=== PATIENT | male | born 1995 | race Caucasian/White ===

== ENCOUNTER 2021-06-22 19:38 | Emergency (ER) | payer OTHER ==
[~2021-06-22] VITALS: Ht 175.3 cm; Wt 75.0 kg
[2021-06-22 21:25] VITALS: BP 141/84
== END 2021-06-22 21:24 | disposition home or self-care (01) ==
LOC: ED 19:38
DX: R07.9 Chest pain, unspecified (principal); F17.200 Nicotine dependence, unspecified, uncomplicated

== ENCOUNTER 2021-09-21 22:33 | Emergency (ER) | payer OTHER ==
[~2021-09-21] VITALS: Ht 175.3 cm; Wt 84.0 kg
[2021-09-21 22:47] VITALS: BP 138/86
[2021-09-21] MEDS ORDERED: IBUPROFEN600 MG PO (23:37)
== END 2021-09-22 00:10 | disposition home or self-care (01) | DRG 563 ==
LOC: ED 22:33
DX: S83.92XA Sprain of unspecified site of left knee, initial encounter (principal); F17.200 Nicotine dependence, unspecified, uncomplicated; V68.5XXA Driver of heavy transport vehicle injured in noncollision transport accident in traffic accident, initial encounter

== ENCOUNTER 2022-03-03 13:22 | Emergency (ER) | payer OTHER ==
[~2022-03-03] VITALS: Ht 175.3 cm; Wt 79.3 kg
[~2022-03-03 13:22] MED LIST: IBUPROFEN600 MG PO
[2022-03-03 14:28] VITALS: BP 101/70
[2022-03-03 14:30] VITALS: BP 124/72
[2022-03-03 15:00] VITALS: BP 111/65
[2022-03-03 15:30] VITALS: BP 107/63
[2022-03-03 16:00] VITALS: BP 100/56
== END 2022-03-03 16:02 | disposition home or self-care (01) ==
LOC: ED 13:22
DX: U07.1 COVID-19 (principal); R05.9 Cough, unspecified; R50.9 Fever, unspecified; R52 Pain, unspecified; F17.210 Nicotine dependence, cigarettes, uncomplicated

== ENCOUNTER 2023-05-24 13:54 | Emergency (ER) | payer OTHER ==
[~2023-05-24] VITALS: Ht 175.3 cm; Wt 82.0 kg
[2023-05-24] MEDS ORDERED: NAPROXEN500 MG PO (15:10)
[2023-05-24] MEDS ORDERED: METHOCARBAMOL500 MG PO (15:10)
[2023-05-24 15:32] VITALS: BP 109/71
== END 2023-05-24 15:35 | disposition home or self-care (01) ==
LOC: ED 13:54
DX: M54.6 Pain in thoracic spine (principal); F17.200 Nicotine dependence, unspecified, uncomplicated

== ENCOUNTER 2024-05-17 18:26 | Emergency (ER) | payer OTHER ==
[~2024-05-17] VITALS: Ht 175.3 cm; Wt 90.0 kg
[~2024-05-17 18:26] MED LIST changes: +METHOCARBAMOL500 MG PO; +NAPROXEN500 MG PO
[2024-05-17 18:43] VITALS: BP 127/64
[2024-05-17 19:00] VITALS: BP 116/75
[2024-05-17] MEDS ORDERED: DEXAMETHASONE 2 MG/TAB TAB PO ONE (19:25)
[2024-05-17] MEDS ORDERED: ORPHENADRINE CITRATE 30 MG/ML AMP IM ONE (19:25)
[2024-05-17] MEDS ORDERED: HYDROmorphone HCL 2 MG/AMP IM ONE (19:25)
[2024-05-17 19:31] VITALS: BP 103/72
[2024-05-17] MEDS ORDERED: FLEXERIL5 M1 PO (19:31)
[2024-05-17] MEDS ORDERED: DECADRON4 MG PO (19:31)
[2024-05-17] MEDS ORDERED: CELEBREX200 M1 PO (19:31)
[2024-05-17] MEDS ORDERED: CYCLOBENZAPRINE HCL 5 MG TAB PO ONE (19:40)
[2024-05-17 20:11] VITALS: BP 116/75
== END 2024-05-17 20:11 | disposition home or self-care (01) ==
LOC: ED 18:26
DX: S39.012A Strain of muscle, fascia and tendon of lower back, initial encounter (principal); F17.200 Nicotine dependence, unspecified, uncomplicated; X50.0XXA Overexertion from strenuous movement or load, initial encounter; Y93.89 Activity, other specified; Y92.59 Other trade areas as the place of occurrence of the external cause; Y99.0 Civilian activity done for income or pay

== ENCOUNTER 2024-10-13 21:16 | Emergency (ER) | payer OTHER ==
[~2024-10-13] VITALS: Ht 175.3 cm; Wt 89.0 kg
[~2024-10-13 21:16] MED LIST changes: +CELEBREX200 M1 PO; +DECADRON4 MG PO; +FLEXERIL5 M1 PO
[2024-10-13 21:20] VITALS: BP 135/77
[2024-10-13] MEDS ORDERED: ACETAMINOPHEN 500 MG TAB PO ONE (21:25)
[2024-10-13] MEDS ORDERED: AMOXICILLIN TRIHYDRATE 500 MG/CAP PO ONE (21:25)
[2024-10-13] MEDS ORDERED: IBUPROFEN 800 MG/TAB PO ONE (21:25)
[2024-10-13] MEDS ORDERED: MOTRIN800 MG PO (21:27)
[2024-10-13] MEDS ORDERED: AMOXICILLIN500 MG PO (21:27)
[2024-10-13 21:30] VITALS: BP 140/85
[2024-10-13 21:45] VITALS: BP 128/86
[2024-10-13 21:47] VITALS: BP 128/86
== END 2024-10-13 21:47 | disposition home or self-care (01) ==
LOC: ED 21:16
DX: K04.7 Periapical abscess without sinus (principal); K02.9 Dental caries, unspecified; F17.200 Nicotine dependence, unspecified, uncomplicated